=== PATIENT | female | born 1965 | race Caucasian/White ===

== ENCOUNTER 2019-06-03 06:35 | Day surgery (SDC) | payer OTHER ==
[~2019-06-03 06:35] MED LIST: BICARSIM80 MG PO; CIPRO500 MG PO; FLAGYL500MG PO; PERCOCET 5/321 UDTAB PO; PERCOCET 5/3251 TAB PO; RECTICARE30 GM TP; SYNTHROID75 MCG PO
== END 2019-06-03 12:00 | disposition home or self-care (01) ==
LOC: AMB-ENDOS 06:35
DX: K57.30 Diverticulosis of large intestine without perforation or abscess without bleeding (principal)